=== PATIENT | female | born 1980 | race Caucasian/White ===

== ENCOUNTER 2019-12-06 09:45 | Inpatient (IN) | payer OTHER ==
[~2019-12-06] VITALS: Ht 160 cm; Wt 88.5 kg
[2019-12-06] MEDS ORDERED: OXYTOCIN 30 UNITS/LACT RINGERS 500 ML IV ONE (09:52)
[2019-12-06] MEDS ORDERED: RINGERS SOLUTION,LACTATED 1,000 ML IV PRN (09:52)
[2019-12-06] MEDS ORDERED: METOCLOPRAMIDE HCL 5 MG/ML 2 ML VIAL IVP PRN (10:00)
[2019-12-06] MEDS ORDERED: CITRIC ACID/SODIUM CITRATE 30 ML SOLUTION UDCUP PO PRN (10:00)
[2019-12-06] MEDS ORDERED: METHYLERGONOVINE MALEATE 0.2 MG/ML VIAL IM PRN (10:00)
[2019-12-06 10:30] VITALS: BP 100/64
[2019-12-06] MEDS ORDERED: DINOPROSTONE 10 MG VAGINAL SUPPOSITORY VG ONE (11:00)
[2019-12-06 11:19] LABS: BASOPHILS % (AUTO) 0.5 % (0.0-2.0); EOSINOPHILS % (AUTO) 0.7 % (1.0-6.0); HEMATOCRIT 36.4 % (36-46); LYMPHOCYTES # (AUTO) 1.6 K/uL (1.0-4.8); LYMPHOCYTES % (AUTO) 16.9 % (22.0-44.0); MEAN CORPUSCULAR HEMOGLOBIN 29.5 pg (26.0-34.0); MEAN CORPUSCULAR HGB CONC 32.9 G/dL (31.0-37.0); MEAN CORPUSCULAR VOLUME 90 fL (80-100); MONOCYTES # (AUTO) 0.6 K/uL (0.1-1.0); MONOCYTES % (AUTO) 6.3 % (2.0-9.0); NEUTROPHILS # (AUTO) 7.2 K/uL (1.8-7.7); NEUTROPHILS % (AUTO) 75.6 % (40.0-70.0); PLATELET COUNT (AUTO) 202 K/uL (150-450); RED BLOOD CELL COUNT(AUTO) 4.05 MIL/uL (4.00-5.20); RED CELL DISTRIBUTION WIDTH 15.1 % (11.5-14.5)
[2019-12-06] MEDS: RINGERS SOLUTION,LACTATED 1,000 ML IV SCH ×2 (11:30→19:53)
[2019-12-06] MEDS ORDERED: MINERAL OIL 30 ML UDCUP VG ONE (12:00)
[2019-12-06] MEDS ORDERED: OXYGEN THERAPY IH SCH (20:00)
[2019-12-06] MEDS ORDERED: -PHARMACY NOTE- MISC ONE (23:00)
[2019-12-07] MEDS ORDERED: MISOPROSTOL 50 MCG TABLET PO ONE (00:15)
[2019-12-07] MEDS: RINGERS SOLUTION,LACTATED 1,000 ML IV SCH (00:44)
[2019-12-07] MEDS ORDERED: AMPICILLIN SODIUM 2 GM/NS 100 ML IV ONE (04:00)
[2019-12-07] MEDS ORDERED: OXYTOCIN 30 UNITS/LACT RINGERS 500 ML IV PRN (04:32)
[2019-12-07] MEDS: FentaNYL CITRATE-PF 100 MCG/2 ML VIAL IVP PRN ×2 (05:49→05:56)
[2019-12-07] MEDS ORDERED: ROPIVACAINE HCL/PF 0.2% 100 ML ED ONE (06:28)
[2019-12-07] MEDS ORDERED: BUPIVACAINE HCL/PF 0.25% 10 ML VIAL ONE (06:28)
[2019-12-07] MEDS ORDERED: OXYTOCIN 30 UNITS/LACT RINGERS 500 ML IV ONE ×2 (06:35→16:25)
[2019-12-07] MEDS ORDERED: *CLINICAL-GENTAMICIN DOSING CLINICAL ONE (06:45)
[2019-12-07] MEDS ORDERED: LANOLIN 7 GM OINTMENT TP PRN ×2 (06:45→16:30)
[2019-12-07] MEDS ORDERED: GLYCERIN/WITCH HAZEL LEAF 40 PADS JAR TP PRN ×2 (06:45→16:30)
[2019-12-07] MEDS ORDERED: LIDOCAINE/PF 1% 30 ML VIAL INJ PRN ×2 (06:45→16:30)
[2019-12-07] MEDS ORDERED: BENZOCAINE 20%/MENTHOL 56 GM SPRAY CANISTER TP PRN ×2 (06:45→16:30)
[2019-12-07] MEDS ORDERED: MAGNESIUM HYDROXIDE SUSPENSION 30 ML UDCUP PO PRN (06:45)
[2019-12-07] MEDS ORDERED: OxyCODONE HCL/ACETAMINOPHEN 5-325 MG TABLET PO PRN ×4 (06:45→16:30)
[2019-12-07] MEDS ORDERED: IBUPROFEN 800 MG TABLET PO PRN ×2 (06:45→16:30)
[2019-12-07] MEDS ORDERED: ONDANSETRON HCL 4 MG/2 ML VIAL IVP PRN (07:00)
[2019-12-07] MEDS ORDERED: ROPIVACAINE HCL/PF 0.2% 100 ML ED PRN (07:00)
[2019-12-07] MEDS ORDERED: GENTAMICIN 120 MG/NACL ISO-OSM 100 ML IV ONE (07:00)
[2019-12-07] MEDS ORDERED: NALBUPHINE HCL 10 MG/ML VIAL IVP PRN (07:00)
[2019-12-07] MEDS ORDERED: DiphenhydrAMINE HCL 50 MG/ML VIAL IVP PRN (07:00)
[2019-12-07] MEDS ORDERED: AMPICILLIN SODIUM 1 GM/NS 50 ML IV SCH ×2 (08:00→11:00)
[2019-12-07] MEDS ORDERED: AMPICILLIN SODIUM 2 GM/NS 100 ML IV SCH (10:00)
[2019-12-07] MEDS ORDERED: RINGERS SOLUTION,LACTATED 1,000 ML IV SCH (14:49)
[2019-12-07] MEDS ORDERED: METHYLERGONOVINE MALEATE 0.2 MG/ML VIAL IM PRN (15:00)
[2019-12-07] MEDS ORDERED: OXYTOCIN 20 UNITS/LACT RINGERS 1,000 ML IV ONE ×3 (16:45→16:55)
[2019-12-07 18:29] LABS: BASOPHILS % (AUTO) 0.2 % (0.0-2.0); EOSINOPHILS % (AUTO) 0 % (1.0-6.0); HEMATOCRIT 27.7 % (36-46); LYMPHOCYTES # (AUTO) 0.9 K/uL (1.0-4.8); LYMPHOCYTES % (AUTO) 4.2 % (22.0-44.0); MEAN CORPUSCULAR HEMOGLOBIN 29.1 pg (26.0-34.0); MEAN CORPUSCULAR HGB CONC 32.4 G/dL (31.0-37.0); MEAN CORPUSCULAR VOLUME 90 fL (80-100); MONOCYTES # (AUTO) 0.9 K/uL (0.1-1.0); MONOCYTES % (AUTO) 4.2 % (2.0-9.0); NEUTROPHILS # (AUTO) 19.4 K/uL (1.8-7.7); PLATELET COUNT (AUTO)-OB 159 K/uL (150-450); RED BLOOD CELL COUNT(AUTO) 3.08 MIL/uL (4.00-5.20); RED CELL DISTRIBUTION WIDTH 15.3 % (11.5-14.5)
[2019-12-07 18:30] LABS: NEUTROPHILS % (AUTO) 91.4 % (40.0-70.0)
[2019-12-07] MEDS ORDERED: METHYLERGONOVINE MALEATE 0.2 MG/ML VIAL ONE (18:56)
[2019-12-07] MEDS: MAGNESIUM HYDROXIDE SUSPENSION 30 ML UDCUP PO PRN (23:22)
[2019-12-08 06:24] LABS: EOSINOPHILS % (AUTO) 0.1 % (1.0-6.0); LYMPHOCYTES % (AUTO) 12.1 % (22.0-44.0); MEAN CORPUSCULAR HEMOGLOBIN 29.5 pg (26.0-34.0); MEAN CORPUSCULAR HGB CONC 32.9 G/dL (31.0-37.0); MEAN CORPUSCULAR VOLUME 90 fL (80-100); MONOCYTES # (AUTO) 0.9 K/uL (0.1-1.0); MONOCYTES % (AUTO) 5.2 % (2.0-9.0); NEUTROPHILS # (AUTO) 13.7 K/uL (1.8-7.7); NEUTROPHILS % (AUTO) 82.6 % (40.0-70.0); PLATELET COUNT (AUTO)-OB 150 K/uL (150-450); RED BLOOD CELL COUNT(AUTO) 2.34 MIL/uL (4.00-5.20); RED CELL DISTRIBUTION WIDTH 15.3 % (11.5-14.5)
[2019-12-08 07:36] LABS: HEMOGLOBIN 6.9 g/dL (12.0-16.0)
[2019-12-08] MEDS ORDERED: IRON SUCROSE COMPLEX 200 MG in SODIUM CHLORIDE 0.9% 100 ML IV ONE (08:00)
[2019-12-08] MEDS: MAGNESIUM HYDROXIDE SUSPENSION 30 ML UDCUP PO PRN (08:59)
[2019-12-08] MEDS ORDERED: SOD FERRIC GLUC COMPLX/SUCROSE 125 MG in SODIUM CHLORIDE 0.9% 100 ML IV ONE (09:00)
[2019-12-08 13:48] LABS: BASOPHILS % (AUTO) 0.1 % (0.0-2.0); EOSINOPHILS % (AUTO) 0.1 % (1.0-6.0); LYMPHOCYTES # (AUTO) 1.6 K/uL (1.0-4.8); LYMPHOCYTES % (AUTO) 11.2 % (22.0-44.0); MEAN CORPUSCULAR HEMOGLOBIN 29.3 pg (26.0-34.0); MEAN CORPUSCULAR HGB CONC 32.6 G/dL (31.0-37.0); MEAN CORPUSCULAR VOLUME 90 fL (80-100); MONOCYTES # (AUTO) 0.8 K/uL (0.1-1.0); MONOCYTES % (AUTO) 5.6 % (2.0-9.0); NEUTROPHILS # (AUTO) 11.9 K/uL (1.8-7.7); PLATELET COUNT (AUTO)-OB 164 K/uL (150-450); RED BLOOD CELL COUNT(AUTO) 2.33 MIL/uL (4.00-5.20); RED CELL DISTRIBUTION WIDTH 15.6 % (11.5-14.5)
[2019-12-08 13:52] LABS: HEMOGLOBIN 6.8 g/dL (12.0-16.0)
[2019-12-08] MEDS ORDERED: FERR-89 PO (14:12)
[2019-12-08] MEDS ORDERED: DOCU-275 PO (14:16)
[2019-12-08] MEDS ORDERED: IBUP-2071 PO (14:18)
== END 2019-12-08 17:10 | disposition home or self-care (01) | DRG 807 ==
LOC: 4S 09:45 → OBSVTOIN 09:45
PROVIDERS: ADMIT Obstetrics & Gynecology; ATTEND Obstetrics & Gynecology
PROC: 10D07Z8 Extraction of Products of Conception, Other, Via Natural or Artificial Opening (ICD-10-PCS; principal; 2019-12-07)
PROC: 0HQ9XZZ Repair Perineum Skin, External Approach (ICD-10-PCS; 2019-12-07)
PROC: 3E0R3BZ Introduction of Anesthetic Agent into Spinal Canal, Percutaneous Approach (ICD-10-PCS; 2019-12-07)
PROC: 00HU33Z Insertion of Infusion Device into Spinal Canal, Percutaneous Approach (ICD-10-PCS; 2019-12-07)
DX: O69.81X0 Labor and delivery complicated by cord around neck, without compression, not applicable or unspecified (principal); Z37.0 Single live birth; O70.0 First degree perineal laceration during delivery; Z3A.39 39 weeks gestation of pregnancy
CPT/HCPCS: 86850; 86900; 86901; 86923; J0290; J1580; J1756; J2210; J2590; J2795; J2916; J3010; J3490; J7050; J7120